=== PATIENT | female | born 1970 | race Caucasian/White ===

== ENCOUNTER → 2018-10-22 | Outpatient (CLI) | payer OTHER ==
--- NOTE | 2018-10-22 16:57 | KCIC ---
MR of the right knee HISTORY: Right knee pain medial and lateral. TECHNIQUE: Routine multiplanar sequences are obtained. FINDINGS: No evidence of medial meniscal tear. Mild signal and blunting of the free margin of the lateral meniscus, with mild internal signal. Signal does extend through the peripheral nonarticular surface where it communicates with a small para meniscal cyst alongside the body. Anterior and posterior cruciate ligament are intact. Medial collateral ligament is intact. Iliotibial band unremarkable. Fibular collateral ligament, biceps femoris tendon and popliteus tendon are intact. Extensor mechanism is intact. Small joint effusion. Chondral thinning at the lateral joint compartment, particularly the lateral tibial plateau with minimal subchondral cystic change. No bone destruction or acute fracture. No significant Kendall's cyst. IMPRESSION: 1. Lateral meniscal tear, at least involving the lateral nonarticular aspect. Likely also tearing of the free margin. 2. 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 Electronically signed by: Cristi Andrade MD (10/22/2018 4:54 PM) [facility]
== END | disposition home or self-care (01) ==
LOC: KCIC MRI 14:32
PROVIDERS: ATTEND Orthopaedic Surgery
DX: S83.281A Other tear of lateral meniscus, current injury, right knee, initial encounter (principal); M94.261 Chondromalacia, right knee; M25.461 Effusion, right knee; X58.XXXA Exposure to other specified factors, initial encounter; Y93.89 Activity, other specified; Y92.89 Other specified places as the place of occurrence of the external cause; Y99.8 Other external cause status
CPT/HCPCS: 73721